=== PATIENT | male | born 1985 | race African-American/Black ===

== ENCOUNTER 2018-02-20 03:24 | Inpatient (IN) ==
--- NOTE | 2018-02-20 03:52 | ED ---
HPI General Chief complaint: Chest Pain Stated complaint: Chest pain, leg pain swelling Time Seen by Provider: 02/20/18 03:47 History of Present Illness HPI narrative: The patient is a 32 year old male who presents to the [facility] emergency department with a history of chest pain that began on Sunday. It is in the center of his chest. It is an aching sensation. It has been constant. He denies any nausea, vomiting, or diarrhea. He denies any SOB. He denies having any cough, congestion, or rhinorrhea, however his throat is reportedly dry. The patient was unaware that he had a fever until he arrived in the emergency department. The patient is being assisted with his history by his mother. The patient is somewhat of a poor historian related to his schizoaffective disorder. His mom reports that he usually gets a dry mouth when he gets his psychiatric medication injections. The patient denies having any prior history of coronary artery disease. He denies having any history of DVT or PE. He reports that he has had swelling of the right leg however that began approximately 3 weeks ago. He denies any known injury. On review of systems otherwise, the patient denies having any headache, rashes, neck pain, abdominal pain, urinary symptoms, or neurologic symptoms. Related Data Home Medications Medication Instructions Recorded Confirmed benztropine 0.5 mg PO BID 02/20/18 02/20/18 paliperidone palmitate [Invega 234 mg IM QMONTH 02/20/18 02/20/18 Sustenna] Allergies Allergy/AdvReac Type Severity Reaction Status Date / Time No Known Allergies Allergy Unverified 02/20/18 03:26 Review of Systems ROS: all other systems reviewed are negative [facility] Medical History Medical History Schizo-affective schizophrenia (Acute) Surgical History Surgical History H/O eye surgery (Acute) Social History Social History Substance History: No History of Abuse Second Hand Smoke Exposure: Yes Smoking Status: Current every day smoker Tobacco Type: Cigarettes Cigarettes Per Day: 3 How Often Do You Have a Drink Containing Alcohol: Never Recent Travel in [facility] within the Last 8 Weeks: No Recent Out of Country Travel within the Last 8 Weeks: No Immunization History Tetanus Immunization: >5 Years Hx Influenza Vaccine This Season: No Exam Const General: cooperative, no acute distress and well developed Nutritional Appearance: well nourished Orientation: alert, awake and oriented x3 HENMT Head: normocephalic and atraumatic Nose: no nasal discharge and no epistaxis Mouth: moist mucous membranes Throat: uvula midline and other (Posterior oropharynx is mildly erythematous. No tonsillar hypertrophy. No exudates or palatal petechiae.) Eyes Sclera: normal sclerae Pupils: PERRL Neck Neck: no meningeal signs, trachea midline and no JVD Resp Effort & Inspection: normal respiratory effort (The patient's O2 saturation on room air is noted to be 93) and no use of accessory muscles Auscultation: clear to auscultation bilaterally Cardio Rate: tachycardic (Sinus tachycardia in the 1 teens, no pulse deficits to the extremities on simultaneous auscultation and palpation of his radial artery) Rhythm: regular rhythm Heart Sounds: no gallops, no murmurs and no rubs GI Inspection: non-distended Palpation: soft, no hepatosplenomegaly and nontender Back/Spine/Pelvis Back: no CVA tenderness Skin General: dry skin (warm) Neuro General: alert and awake Cranial Nerves: other Speech: speech normal Motor: no movement abnormalities noted Extrem General: calf tenderness (On the right.), no clubbing, no cyanosis and edema Laterality: on the right Psych Mood: congruent mood Affect: blunted Judgment: fair Course Consultations Consultation #1: The patient's case including history, pertinent physical examination findings, and laboratory studies were discussed with Dr. Winters. It was agreed that the patient would be admitted to the hospitalist service. Initial Documented Vital Signs Temperature 101.5 F H 02/20/18 03:26 Pulse Rate 144 H 02/20/18 03:26 Respiratory Rate 16 02/20/18 03:26 Blood Pressure 131/63 02/20/18 03:26 Pulse Oximetry 94 L 02/20/18 03:26 Last Documented Vital Signs Temperature 99.2 F 02/20/18 07:15 Pulse Rate 98 H 02/20/18 07:15 Respiratory Rate 18 02/20/18 07:15 Blood Pressure 119/79 02/20/18 07:15 Pulse Oximetry 95 02/20/18 07:15 Critical Care Time Critical Care Time: Yes Total Critical Care Time: 34 Attestation: Aggregate critical care time was 34 minutes. Time to perform other separately billable procedures was not included in the critical care time. My time did not include minutes spent treating any other patients simultaneously or on activities that did not directly contribute to the patient's treatment. The services I provided to this patient were to treat and/or prevent clinically significant deterioration that could result in: Respiratory failure, versus hypoxic brain injury, versus cardiovascular collapse I provided critical care services requiring my management, as noted below: Chart data review, documentation time, medication orders and management, vital sign assessments/reviewing monitor data, ordering and reviewing lab tests, ordering and interpreting/reviewing x-rays and diagnostic studies, care of the patient and discussion of the patient with the admitting physicians. Medical Decision Making MDM Narrative Medical decision making narrative: During the course of the patient's emergency department visit, the patient's history, examination, and differential diagnosis were reviewed with the patient. The patient was placed on a desk monitor with oximetry and frequent blood pressure monitoring. The patient had IV access obtained and blood work sent for analysis. Diagnostic evaluation was started regarding the patient's chest pain and fever. Blood cultures x2 were ordered. The patient was initially provided normal saline at 500 mL bolus x1, Tylenol 650 p.o. x1 for fever. Diagnostic studies are remarkable for a white count of 8.7, hemoglobin 14.4, platelets 236, monocytes 14.7. PT PTT within normal limits, chemistries remarkable for creatinine 1.36, GFR of 73, glucose 111, calcium 8.0, AST 77, initial set of cardiac enzymes are within normal limits, BNP is 8, albumin 2.9, TSH within normal limits, lipase within normal limits. A chest x-ray revealed mild bilateral lower lung zone pulmonary opacity which may represent pulmonary edema versus atelectasis versus mild consolidation, moderate cardiac silhouette enlargement. Ultrasound of the right lower extremity revealed occlusive DVT of the right lower extremity involving the popliteal and posterior tibial veins, CTA to rule out PE revealed multiple moderate sized pulmonary emboli bilaterally , moderate severity bilateral lower lobe pulmonary consolidation, small pleural effusions. The patient was started on azithromycin 500 mg IV. The patient was started on heparin as a bolus and a drip for PE and DVT. The patient's results were discussed with the patient, including the plan of care. I explained that further testing and/ or monitoring is indicated based on the patient's history, examination, and/ or laboratory findings. Therefore, I recommended admission for additional evaluation. The patient expressed understanding and was agreeable with this plan. The patient was admitted to the hospital in guarded condition and sent to a bed under the care of the [facility] service. Medical Screen Exam Complete: Yes Emergency Medical Condition: Yes Differential Diagnosis Differential Diagnosis: Pulmonary embolism, versus pneumonia, versus acute coronary syndrome, versus congestive heart failure, versus endocarditis Medical Records Medical records reviewed: Yes I reviewed the patient's medical records. Lab Data Lab results reviewed: Yes I reviewed the patient's lab results. Result diagrams: 02/20/18 04:00 02/20/18 04:00 Lab Results 02/20/18 02/20/18 02/20/18 Range/Units 04:00 04:00 04:00 WBC 8.7 (4.0-11.0) th/mm3 RBC 4.88 (4.50-5.90) mil/mm3 Hgb 14.4 (13.0-17.0) gm/dL Hct 42.1 (39.0-51.0) % MCV 86.2 (80.0-100.0) fL MCH 29.4 (27.0-34.0) pg MCHC 34.2 (32.0-36.0) % RDW 13.1 (11.6-17.2) % Plt Count 236 (150-450) th/mm3 MPV 8.4 (7.0-11.0) fL Neut % (Auto) 66.8 (16.0-70.0) % Lymph % (Auto) 16.7 (9.0-44.0) % [place] % (Auto) 14.7 H (0.0-8.0) % Eos % (Auto) 1.5 (0.0-4.0) % Baso % (Auto) 0.3 (0.0-2.0) % Neut # (Auto) 5.8 (1.8-7.7) th/mm3 Lymph # (Auto) 1.5 (1.0-4.8) th/mm3 [place] # (Auto) 1.3 H (0.0-0.9) th/mm3 Eos # (Auto) 0.1 (0.0-0.4) th/mm3 Baso # (Auto) 0.0 (0.0-0.2) th/mm3 WBC Differential . Differential Comment Auto diff final PT 11.0 (9.8-11.6) sec INR 1.1 Ratio APTT 27.3 (24.3-30.1) sec Sodium 141 (136-145) meq/L Potassium 3.6 (3.5-5.1) meq/L Chloride 103 (98-107) meq/L Carbon Dioxide 28.2 (21.0-32.0) meq/L Anion Gap 10 (5-15) meq/L BUN 10 (7-18) mg/dL Creatinine 1.36 H (0.60-1.30) mg/dL Estimated GFR 73 L (>89) mL/min Random Glucose 111 H (74-106) mg/dL Calcium 8.0 L (8.5-10.1) mg/dL Magnesium 2.0 (1.5-2.5) mg/dL Total Bilirubin 0.8 (0.2-1.0) mg/dL AST 77 H (15-37) U/L ALT 72 (12-78) U/L Alkaline Phosphatase 81 (45-117) U/L Total Creatine Kinase 94 (39-308) U/L Troponin I Less than 0.02 L (0.02-0.05) ng/mL B-Natriuretic Peptide (0-100) pg/mL Total Protein 8.0 (6.4-8.2) g/dL Albumin 2.9 L (3.4-5.0) g/dL Lipase 131 (73-393) U/L TSH 3.610 (0.358-3.740) uIU/mL 02/20/18 02/20/18 Range/Units 04:00 06:25 WBC (4.0-11.0) th/mm3 RBC (4.50-5.90) mil/mm3 Hgb (13.0-17.0) gm/dL Hct (39.0-51.0) % MCV (80.0-100.0) fL MCH (27.0-34.0) pg MCHC (32.0-36.0) % RDW (11.6-17.2) % Plt Count (150-450) th/mm3 MPV (7.0-11.0) fL Neut % (Auto) (16.0-70.0) % Lymph % (Auto) (9.0-44.0) % [place] % (Auto) (0.0-8.0) % Eos % (Auto) (0.0-4.0) % Baso % (Auto) (0.0-2.0) % Neut # (Auto) (1.8-7.7) th/mm3 Lymph # (Auto) (1.0-4.8) th/mm3 [place] # (Auto) (0.0-0.9) th/mm3 Eos # (Auto) (0.0-0.4) th/mm3 Baso # (Auto) (0.0-0.2) th/mm3 WBC Differential Differential Comment PT 11.4 (9.8-11.6) sec INR 1.1 Ratio APTT 27.3 (24.3-30.1) sec Sodium (136-145) meq/L Potassium (3.5-5.1) meq/L Chloride (98-107) meq/L Carbon Dioxide (21.0-32.0) meq/L Anion Gap (5-15) meq/L BUN (7-18) mg/dL Creatinine (0.60-1.30) mg/dL Estimated GFR (>89) mL/min Random Glucose (74-106) mg/dL Calcium (8.5-10.1) mg/dL Magnesium (1.5-2.5) mg/dL Total Bilirubin (0.2-1.0) mg/dL AST (15-37) U/L ALT (12-78) U/L Alkaline Phosphatase (45-117) U/L Total Creatine Kinase (39-308) U/L Troponin I (0.02-0.05) ng/mL B-Natriuretic Peptide 8 (0-100) pg/mL Total Protein (6.4-8.2) g/dL Albumin (3.4-5.0) g/dL Lipase (73-393) U/L TSH (0.358-3.740) uIU/mL Imaging Data Radiologist's impression: Chest X-Ray 02/20/18 03:54 CONCLUSION: 1. Mild bilateral lower lung zone pulmonary opacity may represent mild pulmonary edema, atelectasis, or mild consolidation. 2. Moderate cardiac silhouette enlargement. Chest CTA 02/20/18 03:58 CONCLUSION: 1. Multiple moderate-sized pulmonary emboli bilaterally. 2. Moderate severity bilateral lower lobe pulmonary consolidation/atelectasis. 3. Small pleural effusions. Venous Doppler Study 02/20/18 03:58 CONCLUSION: Occlusive DVT of the right lower extremity involving the popliteal and posterior tibial veins. ECG Data Attestation: I personally reviewed and interpreted this ECG as follows: Interpretation: The patient had an EKG done on arrival that shows a sinus tachycardia with occasional ventricular premature complexes heart rate of 117, QRS duration 70 ms, QTC [address] segment elevation. T waves are inverted in lead III, V1. Discharge Plan Discharge Disposition Patient Disposition: 30 Still Patient Discharge Details Diagnosis: Bilateral pulmonary embolism, DVT (deep venous thrombosis) Physicians Team ED Provider: Pau Cobos Primary Care Provider: Primary Care Radha Rome Attending Provider: Mark Ching Discharge Interventions Interventions: Vital Signs Last Done: 02/20/18 03:31 Status ED Status: Admitted Patient
[2018-02-20] MEDS ORDERED: Acetaminophen 325 MG Tablet PO ONE (03:54)
--- NOTE | 2018-02-20 04:13 | XR ---
EXAM DATE: 02/20/2018 3:54 AM EDT AGE/SEX: 32 years / Male INDICATIONS: Chest pain. CLINICAL DATA: This is the patient's initial encounter. Patient reports that signs and symptoms have been present for 1 day and indicates a pain score of 4/10. MEDICAL/SURGICAL HISTORY: None. None. COMPARISON: . FINDINGS: Single AP view of the chest. Lung volumes are low. Patchy bilateral lower lung zone pulmonary parench ymal opacity. Moderate cardiac silhouette enlargement. No evidence of pleural effusion or pneumothora x. CONCLUSION: 1. Mild bilateral lower lung zone pulmonary opacity may represent mild pulmonary edema, atelectasis, or mild consolidation. 2. Moderate cardiac silhouette enlargement. Electronically signed by: Aubrey Meyer MD 02/20/2018 4:12 AM EDT
[2018-02-20 04:37] LABS: Activated Partial Thrombo Time 27.3 sec (24.3-30.1); Baso % (Auto) 0.3 % (0.0-2.0); Eos # (Auto) 0.1 th/mm3 (0.0-0.4); Eos % (Auto) 1.5 % (0.0-4.0); Hematocrit 42.1 % (39.0-51.0); Hemoglobin 14.4 gm/dL (13.0-17.0); INR 1.1 Ratio; Lymph # (Auto) 1.5 th/mm3 (1.0-4.8); Lymph % (Auto) 16.7 % (9.0-44.0); Mean Corpuscular HGB Conc 34.2 % (32.0-36.0); Mean Corpuscular Hemoglobin 29.4 pg (27.0-34.0); Mean Corpuscular Volume 86.2 fL (80.0-100.0); Mean Platelet Volume 8.4 fL (7.0-11.0); Mono # (Auto) 1.3 th/mm3 (0.0-0.9); Mono % (Auto) 14.7 % (0.0-8.0); Neut # (Auto) 5.8 th/mm3 (1.8-7.7); Neut % (Auto) 66.8 % (16.0-70.0); Platelet Count 236 th/mm3 (150-450); Red Blood Count 4.88 mil/mm3 (4.50-5.90); Red Cell Distribution Width 13.1 % (11.6-17.2); White Blood Count 8.7 th/mm3 (4.0-11.0)
[2018-02-20 04:42] LABS: Albumin 2.9 g/dL (3.4-5.0); Anion Gap 10 meq/L (5-15); Aspartate Aminotransferase 77 U/L (15-37); Blood Urea Nitrogen 10 mg/dL (7-18); Carbon Dioxide 28.2 meq/L (21.0-32.0); Chloride 103 meq/L (98-107); Glomerular Filtration Rate 73 mL/min (>89); Glucose,Random 111 mg/dL (74-106); Lipase 131 U/L (73-393); Potassium 3.6 meq/L (3.5-5.1); Sodium 141 meq/L (136-145)
[2018-02-20 04:53] LABS: Alanine Aminotransferase 72 U/L (12-78); Alkaline Phosphatase 81 U/L (45-117)
[2018-02-20 04:56] LABS: Creatine Kinase 94 U/L (39-308)
[2018-02-20] MEDS ORDERED: Azithromycin Inj 500 MG in Sodium Chlor 0.9% Inj 250 ML IV.SIG ONE (05:14)
[2018-02-20] MEDS ORDERED: Sodium Chlor 0.9% Inj 500 ML IV.SIG ONE (05:14)
--- NOTE | 2018-02-20 05:36 | US ---
EXAM DATE: 02/20/2018 3:58 AM EDT AGE/SEX: 32 years / Male INDICATIONS: Right leg pain and swelling. CLINICAL DATA: This is the patient's initial encounter. Patient reports that signs and symptoms have been present for 3 days and indicates a pain score of 7/10. MEDICAL/SURGICAL HISTORY: . Schizophrenia. Right leg swelling and pain. . Eye surgery. COMPARISON: No prior exams available for comparison. TECHNIQUE: Venous ultrasound of both lower extremities was performed from the inguinal ligament to t he proximal calf. Real-time, color Doppler and spectral tracing, compression and augmentation techni ques were used. FINDINGS: There is lack of compression and color Doppler flow of the right popliteal vein and proxim al posterior tibial vein. Normal compression and color Doppler flow of the common femoral vein, super ficial femoral vein, and peroneal vein. CONCLUSION: Occlusive DVT of the right lower extremity involving the popliteal and posterior tibial veins. Electronically signed by: Aubrey Meyer MD 02/20/2018 5:34 AM EDT
--- NOTE | 2018-02-20 06:08 | CT ---
EXAM DATE: 02/20/2018 4:00 AM EDT AGE/SEX: 32 years / Male INDICATIONS: Chest pain with leg swelling. CLINICAL DATA: This is the patient's initial encounter. Patient reports that signs and symptoms have been present for 1 day and indicates a pain score of 6/10. MEDICAL/SURGICAL HISTORY: None. None. RADIATION DOSE: 21.51 CTDI (mGy) COMPARISON: No prior exams available for comparison. TECHNIQUE: Volumetric scanning was performed using a multi-row detector CT scanner during bolus infu sharon of 70 ml Omnipaque 350 (iohexol) nonionic water-soluble contrast as a single exam dose. The meg a was post processed with a variety of visualization algorithms including full volume maximum intensi ty projection and sliding thin slab reformation. Using automated exposure control and adjustment of the mA and/or kV according to patient size, radiation dose was kept as low as reasonably achievable t o obtain optimal diagnostic quality images. DICOM format image data is available electronically for review and comparison. FINDINGS: Pulmonary Arteries: Multiple moderate-sized filling defects are seen in the pulmonary arteries bilat erally indicating pulmonary emboli. These involve the proximal segmental branches of the lower lobes bilaterally. Left upper lobe branches are also involved. Lung: Moderate severity atelectasis/consolidation of the lower lobes bilaterally. Effusion: Small bilateral pleural effusions. Small pericardial effusion. Mediastinum: Thoracic aorta diameter within normal limits. No enlarged lymph nodes. Other: The axilla is unremarkable. CONCLUSION: 1. Multiple moderate-sized pulmonary emboli bilaterally. 2. Moderate severity bilateral lower lobe pulmonary consolidation/atelectasis. 3. Small pleural effusions. Electronically signed by: Aubrey Meyer MD 02/20/2018 6:07 AM EDT
[2018-02-20] MEDS ORDERED: Heparin 10,000 UNITS/10 ML Vial (for IV use) IV.PUSH STA (06:10)
[2018-02-20] MEDS ORDERED: Bisacodyl 10 MG Supp RECTAL PRN (06:21)
[2018-02-20] MEDS ORDERED: Warfarin Consult Pharmacy OTHER PRN (06:22)
[2018-02-20 06:54] LABS: Activated Partial Thrombo Time 27.3 sec (24.3-30.1); INR 1.1 Ratio; Prothrombin Time 11.4 sec (9.8-11.6)
[2018-02-20] MEDS: Heparin Drip 25,000 UNIT/250 ML BAG IV.CONT PRN ×2 (06:56→21:33)
--- NOTE | 2018-02-20 10:08 | P.HP ---
History of Present Illness Primary Care Physician: No Primary Care Physician History of Present Illness: 32-year-old white male being admitted for pulmonary emboli and DVT. Patient was in his usual state of health until Sunday when he began experiencing chest pain as well as right lower extremity pain. His mother noted that his chest pain would worsen when he would lie down flat. Chest pain slightly progressed since Sunday thus they decided come to the emergency department. Mother denies taking any additional medications try to treat his chest pain. Denies any nausea vomiting fevers or chills. Denies any shortness of breath. Mother denies the patient taking any long trips recently in the last 2 weeks. Patient does endorse that he smokes. Mother says that for long parts of the day he sits around the house, is relatively sedentary. He was recently released from incarceration earlier this October, his incarceration lasted 13 years for fleeting and losing. Sees a account specialist and gets an Invega injections as well as Cogentin for schizoaffective disorder for the past few months. Mother endorses a family history of blood clots in herself and his brother. They denied being diagnosed with any blood clotting disorder. In the emergency department patient had an EKG done which upon my independent review shows no acute changes concerning for ischemia nor infarction, only sinus tachycardia. Chest x-ray is unremarkable. Patient had a CTA performed which was read as having moderate bilateral pulmonary emboli. My independent review of the CT scan does show bilateral infiltrates suggestive of pneumonia as well in the lung gonsalez. Venous Dopplers also shows an occlusive right lower extremity DVT in the posterior tibial veins. His BMP showed mild AK I. Patient was started on a heparin drip and given azithromycin and Rocephin. Inpatient Certification: I certify that the inpatient services were ordered in accordance with Medicare regulations governing the order. This includes certification that hospital inpatient services are reasonable and necessary and in the case of services not specified as inpatient-only under 42 CFR 419.22(n), that they are appropriately provided as inpatient services in accordance to with the 2-midnight benchmark under 43 CFR 412.3(e) Estimated Total Length of Stay (Days): 3 Plans for Post Hospital Care: Home Review of Systems All other systems reviewed negative except as stated in HPI [facility] - History History Provided By: Patient, Family Member - Medical History Medical History: Medical History (Last Reviewed 09/26/18 @ 10:03 by Mark Ching MD) Schizo-affective schizophrenia - Surgical History Surgical History: Surgical History (Last Reviewed 02/20/18 @ 10:03 by Mark Ching MD) H/O eye surgery - Family History Family History: Family History (Last Updated 02/20/18 @ 10:04 by Mark Ching MD) Other VTE (venous thromboembolism) - Social History I have reviewed the patient's Social History: Yes - Tobacco History Second Hand Smoke Exposure: Yes Tobacco Use In Past 30 Days: Yes Smoking Status: Current every day smoker Tobacco Type: Cigarettes Cigarettes Per Day: 3 - Alcohol History How Often Do You Have a Drink Containing Alcohol: Never - Substance Use History Substance History: No History of Abuse - Travel History Recent Travel in the [place] Within the Last 8 Weeks: No Recent Travel Out of the Country Within the Last 8 Weeks: No - Immunization History Tetanus Immunization: >5 Years Hx Influenza Vaccine This Season: No Medications and Allergies Active Medications: Active Medications Al Hydroxide/Mg Hydroxide (Milk Of Magnesia Liq) 30 ml PO Q12H PRN PRN Reason: Mild Constipation Azithromycin (Zithromax) 500 mg PO DAILY JCARLOS Bisacodyl (Dulcolax Supp) 10 mg RECTAL DAILY PRN PRN Reason: SEVERE CONSITIPATION Heparin Sodium/Dextrose (Heparin/D5w 25,000 U/250 Ml) 25,000 unit in 250 mls @ 0 mls/hr IV.CONT TITRATE PRN; Protocol PRN Reason: Per Protocol Last Admin: 02/20/18 06:56 Dose: 1,800 units/hr, 18 mls/hr Ceftriaxone Sodium 2,000 mg/ (Sodium Chloride) 100 mls @ 200 mls/hr IV.SIG Q24H JCARLOS Last Infusion: 02/20/18 07:14 Dose: Infused Lactulose (Lactulose Liq) 30 ml PO DAILY PRN PRN Reason: SEVERE CONSITIPATION Patient Medication Teaching (Coumadin Booklet) 1 each OTHER ONCE@1500 ONE Stop: 02/20/18 15:01 Pharmacy Profile Note (Coumadin Consult Pharmacy) 1 each OTHER UNSCH PRN PRN Reason: PHARMACY DOCUMENTATION Sennosides (Senokot) 17.2 mg PO Q12H PRN PRN Reason: Moderate Constipation Sodium Chloride (Ns Flush) 2 ml IV.FLUSH UNSCH PRN PRN Reason: FLUSH AFTER USING IV ACCESS Warfarin Sodium (Coumadin) 6 mg PO DAILY@1600 [facility] Allergies Allergy/AdvReac Type Severity Reaction Status Date / Time No Known Allergies Allergy Unverified 02/20/18 03:26 Home Medications Medication Instructions Recorded Confirmed Type benztropine 0.5 mg PO BID 02/20/18 02/20/18 History paliperidone palmitate [Invega 234 mg IM QMONTH 02/20/18 02/20/18 History Sustenna] Exam Vital signs: Vital Signs 02/20/18 03:26 02/20/18 03:31 02/20/18 05:23 Temperature 101.5 F H 101.5 F H 99.1 F Pulse Rate 144 H 115 H Respiratory Rate 16 20 Blood Pressure 131/63 128/69 Pulse Oximetry 94 L 93 L 02/20/18 05:45 02/20/18 07:15 02/20/18 09:21 Temperature 99.2 F Pulse Rate 98 H 108 H Respiratory Rate 18 16 Blood Pressure 119/79 158/82 H Pulse Oximetry 98 95 95 Intake & Output 02/19/18 02/20/18 02/20/18 18:59 06:59 18:59 Intake Total 750 / 750 100 / 100 Balance 750 / 750 100 / 100 Weight 220 kg Intake: IV 750 / 750 100 / 100 Azithromycin Inj 500 MG In NS 250 / 250 Inj 250 ML @ 250 mls/hr IV.SIG ONCE ONE Rx#:[id number] NS Inj 500 ML @ Wide Open IV. 500 / 500 SIG BOLUS ONE Rx#:[id number] Rocephin Inj 2,000 MG In NS Inj 100 / 100 100 ML @ 200 mls/hr IV.SIG Q24H [facility] Rx#:[id number] Narrative: VS: afebrile GENERAL: Lying in bed, no acute distress SKIN: Warm and dry. EYES: Pupils equal and round. No scleral icterus. No injection or drainage. ENT: No nasal bleeding or discharge. Gold teeth CARDIOVASCULAR: Regular rate and rhythm. no murmurs RESPIRATORY: No accessory muscle use. Clear to auscultation. Breath sounds equal bilaterally. GASTROINTESTINAL: Abdomen soft, non-tender, nondistended. Extremities: No clubbing, cyanosis. Very trace right lower extremity edema that is nonpitting. MUSCULOSKELETAL: adequate muscle bulk and tone for age and habitus NEUROLOGICAL: Awake and alert. No obvious cranial nerve deficits. No facial droop nor slurred speech noted. PSYCHIATRIC: Appropriate mood, slightly flat affect; insight and judgment normal. Results - Labs CBC & Chem 7: 02/21/18 05:13 02/21/18 05:13 Labs: Laboratory Results - last 24 hr 02/20/18 02/20/18 02/20/18 04:00 04:00 04:00 WBC 8.7 RBC 4.88 Hgb 14.4 Hct 42.1 MCV 86.2 MCH 29.4 MCHC 34.2 RDW 13.1 Plt Count 236 MPV 8.4 Neut % (Auto) 66.8 Lymph % (Auto) 16.7 [place]annin % (Auto) 14.7 H Eos % (Auto) 1.5 Baso % (Auto) 0.3 Neut # (Auto) 5.8 Lymph # (Auto) 1.5 [place] # (Auto) 1.3 H Eos # (Auto) 0.1 Baso # (Auto) 0.0 WBC Differential . Differential Comment Auto diff final PT 11.0 INR 1.1 APTT 27.3 Sodium 141 Potassium 3.6 Chloride 103 Carbon Dioxide 28.2 Anion Gap 10 BUN 10 Creatinine 1.36 H Estimated GFR 73 L Random Glucose 111 H Calcium 8.0 L Magnesium 2.0 Total Bilirubin 0.8 AST 77 H ALT 72 Alkaline Phosphatase 81 Total Creatine Kinase 94 Troponin I Less than 0.02 L B-Natriuretic Peptide Total Protein 8.0 Albumin 2.9 L Lipase 131 TSH 3.610 02/20/18 02/20/18 04:00 06:25 WBC RBC Hgb Hct MCV MCH MCHC RDW Plt Count MPV Neut % (Auto) Lymph % (Auto) [place]ann[place] % (Auto) Eos % (Auto) Baso % (Auto) Neut # (Auto) Lymph # (Auto) [place]annin # (Auto) Eos # (Auto) Baso # (Auto) WBC Differential Differential Comment PT 11.4 INR 1.1 APTT 27.3 Sodium Potassium Chloride Carbon Dioxide Anion Gap BUN Creatinine Estimated GFR Random Glucose Calcium Magnesium Total Bilirubin AST ALT Alkaline Phosphatase Total Creatine Kinase Troponin I B-Natriuretic Peptide 8 Total Protein Albumin Lipase TSH - Imaging Impressions Chest X-Ray 02/20/18 03:54 CONCLUSION: 1. Mild bilateral lower lung zone pulmonary opacity may represent mild pulmonary edema, atelectasis, or mild consolidation. 2. Moderate cardiac silhouette enlargement. Chest CTA 02/20/18 03:58 CONCLUSION: 1. Multiple moderate-sized pulmonary emboli bilaterally. 2. Moderate severity bilateral lower lobe pulmonary consolidation/atelectasis. 3. Small pleural effusions. Venous Doppler Study 02/20/18 03:58 CONCLUSION: Occlusive DVT of the right lower extremity involving the popliteal and posterior tibial veins. Caprini VTE Risk Assessment Caprini VTE Risk Assessment: Moderate/High Risk (score >= 2) Caprini Risk Assessment Model: Point Value = 1 Point Value = 2 Point Value = 3 Point Value = 5 Age 41-60 Minor surgery BMI > 25 kg/m2 Swollen legs Varicose veins or History of unexplained or recurrent spontaneous Oral contraceptives or hormone replacement Sepsis (< 1 month) Serious lung disease, including pneumonia (< 1 month) Abnormal pulmonary function Acute myocardial infarction Congestive heart failure (< 1 month) History of inflammatory bowel disease Medical patient at bed rest Age 61-74 Arthroscopic surgery Major open surgery (> 45 min) Laparoscopic surgery (> 45 min) Malignancy Confined to bed (> 72 hours) Immobilizing plaster cast Central venous access Age >= 75 History of VTE Family history of VTE Factor V Leiden Prothrombin [id number] Lupus anticoagulant Anticardiolipin antibodies Elevated serum homocysteine Heparin-induced thrombocytopenia Other congenital or acquired thrombophilia Stroke (< 1 month) Elective arthroplasty Hip, pelvis, or leg fracture Acute spinal cord injury (< 1 month) Prophylaxis Regimen: Total Risk Factor Score Risk Level Prophylaxis Regimen 0-1 Low Early ambulation 2 Moderate Order ONE of the following: *Sequential Compression Device (SCD) *Heparin 5000 units SQ BID 3-4 Higher Order ONE of the following medications: *Heparin 5000 units SQ TID *Enoxaparin/Lovenox 40 mg SQ daily (WT < 150 kg, CrCl > 30 mL/min) *Enoxaparin/Lovenox 30 mg SQ daily (WT < 150 kg, CrCl > 10-29 mL/min) *Enoxaparin/Lovenox 30 mg SQ BID (WT < 150 kg, CrCl > 30 mL/min) AND/OR *Sequential Compression Device (SCD) 5 or more Highest Order ONE of the following medications: *Heparin 5000 units SQ TID (Preferred with Epidurals) *Enoxaparin/Lovenox 40 mg SQ daily (WT < 150 kg, CrCl > 30 mL/min) *Enoxaparin/Lovenox 30 mg SQ daily (WT < 150 kg, CrCl > 10-29 mL/min) *Enoxaparin/Lovenox 30 mg SQ BID (WT < 150 kg, CrCl > 30 mL/min) AND *Sequential Compression Device (SCD) Assessment and Plan - Plan 32-year-old white male being admitted for bilateral pulmonary emboli, right lower extremity DVT, and pneumonia. VTEs -Possibly unprovoked except for the risk factor of him smoking. Given his young age and his strong family history of VTEs, I will consult hematology to establish contact with him as well as give a recommendation for anticoagulation since he is a self-pay and may not have easy access to the novel oral anticoagulants for the future. My general medical standpoint he can likely be discharged this evening nonetheless. -Heparin drip Pneumonia -Bilateral infiltrates noted, continue antibiotics, given bilateral picture will consider putting the patient on Levaquin upon discharge RADHA -IVFs Schizoaffective disorder Continue home medications Discharge Planning: Anticipate DC today after hematology sees patient
[2018-02-20] MEDS ORDERED: Sod Chloride 0.9% Inj 1,000 ML IV.SIG SCH (10:15)
--- NOTE | 2018-02-20 20:58 | ECG ---
Date Performed: 02/20/2018 Time Performed: 03:38:37 PTAGE: 32 years EKG: SINUS TACHYCARDIA WITH OCCASIONAL VENTRICULAR PREMATURE COMPLEXES ABNORMAL RHYTHM ECG NO PREVIOUS TRACING DOCTOR: Faustino Crook Interpretating Date/Time 02/20/2018 20:57:18
[2018-02-20] MEDS: Acetaminophen 325 MG Tablet PO PRN (22:13)
[2018-02-21] MEDS: Acetaminophen 325 MG Tablet PO PRN ×2 (05:07→18:38)
[2018-02-21 05:49] LABS: Baso % (Auto) 0.5 % (0.0-2.0); Eos # (Auto) 0.2 th/mm3 (0.0-0.4); Eos % (Auto) 2.2 % (0.0-4.0); Hematocrit 38.6 % (39.0-51.0); Hemoglobin 13.2 gm/dL (13.0-17.0); Lymph # (Auto) 1.1 th/mm3 (1.0-4.8); Lymph % (Auto) 13.8 % (9.0-44.0); Mean Corpuscular HGB Conc 34.1 % (32.0-36.0); Mean Corpuscular Hemoglobin 29.3 pg (27.0-34.0); Mean Corpuscular Volume 85.9 fL (80.0-100.0); Mean Platelet Volume 7.9 fL (7.0-11.0); Mono # (Auto) 1.1 th/mm3 (0.0-0.9); Mono % (Auto) 14.3 % (0.0-8.0); Neut # (Auto) 5.4 th/mm3 (1.8-7.7); Neut % (Auto) 69.2 % (16.0-70.0); Platelet Count 235 th/mm3 (150-450); Red Blood Count 4.49 mil/mm3 (4.50-5.90); Red Cell Distribution Width 12.9 % (11.6-17.2); White Blood Count 7.8 th/mm3 (4.0-11.0)
[2018-02-21 05:55] LABS: Activated Partial Thrombo Time 35.4 sec (24.3-30.1); INR 1.2 Ratio; Prothrombin Time 11.8 sec (9.8-11.6)
[2018-02-21 06:09] LABS: Alanine Aminotransferase 84 U/L (12-78); Albumin 2.6 g/dL (3.4-5.0); Anion Gap 7 meq/L (5-15); Aspartate Aminotransferase 64 U/L (15-37); Blood Urea Nitrogen 10 mg/dL (7-18); Calcium 8.2 mg/dL (8.5-10.1); Carbon Dioxide 26.7 meq/L (21.0-32.0); Chloride 106 meq/L (98-107); Glomerular Filtration Rate Greater Than 89 mL/min (>89); Glucose,Random 103 mg/dL (74-106); Potassium 3.9 meq/L (3.5-5.1); Sodium 140 meq/L (136-145)
[2018-02-21 06:12] LABS: Alkaline Phosphatase 80 U/L (45-117); Total Protein 7.2 g/dL (6.4-8.2)
[2018-02-21] MEDS ORDERED: Azithromycin 250 MG Tablet PO SCH (09:00)
[2018-02-21] MEDS ORDERED: Vancomycin Consult Pharmacy OTHER PRN (09:09)
--- NOTE | 2018-02-21 10:03 | MB ---
cc: Rupali Deshpande MD,Mark Kyle MD DATE: 02/21/2018 ONCOLOGY NEW PATIENT CONSULTATION REFERRING PHYSICIAN: Dr. Mark Ching. CHIEF COMPLAINT: Dr. Ching requests a consultation for Mr. Blackwood with unprovoked pulmonary embolism and deep vein thromboses. HISTORY OF PRESENT ILLNESS: Mr. Blackwood is a 62-year-old man with a history of schizophrenia, suffering from delusions, paranoia and auditory hallucinations. He was recently incarcerated and discharged home. Apparently, he was quite sedentary at home. No reliable history could be obtained from the patient. His mother was not at bedside to confirm. His history of present illness and past medical history was reviewed from his electronic medical records. He apparently was incarcerated recently and discharged home. He has been quite sedentary. He reports that he had the flu. He denies any specific symptoms. No chest pain or shortness of breath at present. A CT angiogram was performed that shows moderate sized pulmonary emboli bilaterally. There is moderate severity of consolidation and atelectasis of bilateral lower lobes. There is a small pleural effusion. Additional imaging including Doppler ultrasound of the right lower extremity showed occlusive DVT of the right lower extremity involving the popliteal area and posterior tibial veins. He was promptly started on unfractionated heparin. There is a questionable infiltrate. He had some low-grade temperature. He was febrile on presentation and therefore was started on antibiotic therapy. He continues to be febrile in the last 24 hours. Blood cultures have been obtained and are still pending. His influenza could not be ruled out. He appears to be tolerating his treatment for his deep vein thromboses and pulmonary embolism. He denies any bleeding. He offers no acute complaints this morning. Hematology/Oncology is consulted for the unprovoked right lower extremity deep vein thromboses associated with bilateral pulmonary emboli. PAST MEDICAL HISTORY: 1. Schizoaffective disorder with hallucinations. 2. Right lower extremity deep vein thrombosis. 3. Bilateral pulmonary emboli. 4. Liver function elevation. PAST SURGICAL HISTORY: None. SOCIAL HISTORY: He is living with his mother. He has used marijuana in the past. He is an everyday smoker. He drinks alcohol 2-4 times a month. FAMILY HISTORY: No family history of thromboses described by the patient. Mother reports a family history of venous thromboembolic events. ALLERGIES: NO KNOWN DRUG ALLERGIES. MEDICATIONS: Currently include: 1. Tylenol. 2. Milk of Magnesia. 3. Azithromycin. 4. Cogentin 5. Dulcolax. 6. Ceftriaxone. 7. Unfractionated Heparin. 8. Lactulose. 9. Warfarin. PHYSICAL EXAMINATION: VITAL SIGNS: T-max 102.5, current temperature 99.7, heart rate 93, respiratory rate 16, blood pressure 151/86, saturation 95%. GENERAL: Mr. Blackwood is a well-developed, well-nourished man. He appears to be in no acute distress. He smiles with full set of gold teeth. HEENT: Pupils are round, reactive to light and accommodation. Oropharynx is clear. NECK: Supple, no adenopathy. LUNGS: Clear. CARDIOVASCULAR: Reveals mild tachycardia. ABDOMEN: Benign. EXTREMITIES: Lower extremity with mild asymmetry. Right leg calf more prominent than the left. Good pulses. NEUROLOGIC: Nonfocal. LABORATORY DATA: Comprehensive metabolic panel significant for AST of 64, ALT of 84, alkaline phosphatase is normal. PTT shows prolongation at 35 seconds. ASSESSMENT AND PLAN: Mr. Blackwood is a 32-year-old man with a history of schizophrenia and schizoaffective disorder. He presents with flu-like symptoms. He was febrile. He was found to have unprovoked right lower extremity deep vein thromboses associated with bilateral pulmonary emboli. A lengthy discussion with Mr. Blackwood about his activities prior to coming into the hospital. I do not have the mother to substantiate his history. He does not offer a lot by way of his history, but he was reportedly quite sedentary prior to his presentation. We had a lengthy discussion about the importance of continuing his anticoagulant therapy. I will stop the unfractionated heparin and switch him to low molecular weight heparin. We should be able to obtain 3-months of a new oral anticoagulant, which would be appropriate. He is young. He has no bleeding history and his renal function is normal. He will need followup in Hematology Clinic within a month or switch him over to Coumadin. We will coordinate this with his mother. His questions were answered to his satisfaction. MD MARINA Kingston/leyda , 09:09 AM , 09:20 AM
--- NOTE | 2018-02-21 10:23 | P.PN ---
Subjective Interval history: Nursing denies any deterioration since last night except for the patient's fevers which did spike up to 102.5. Patient himself reports feeling those fevers. Denies any other symptoms. Denies any shortness of breath or chest pain or dysuria. Physical Exam Vital signs: Vital Signs 02/20/18 11:00 02/20/18 11:19 02/20/18 12:00 Temperature 99.3 F Pulse Rate 90 91 H 90 Respiratory Rate 18 Blood Pressure 145/86 H Pulse Oximetry 94 L 02/20/18 13:00 02/20/18 14:00 02/20/18 15:00 Temperature Pulse Rate 96 H 100 H 98 H Respiratory Rate Blood Pressure Pulse Oximetry 02/20/18 15:44 02/20/18 16:00 02/20/18 17:00 Temperature 99.0 F Pulse Rate 100 H 100 H 94 H Respiratory Rate 20 Blood Pressure 147/78 H Pulse Oximetry 95 02/20/18 18:00 02/20/18 19:52 02/20/18 20:00 Temperature 102.5 F H Pulse Rate 92 H 103 H Respiratory Rate 18 Blood Pressure 147/81 H Pulse Oximetry 95 94 L 02/21/18 00:00 02/21/18 04:00 02/21/18 07:30 Temperature 100.4 F H 100.4 F H 99.7 F H Pulse Rate 98 H 105 H 93 H Respiratory Rate 18 18 16 Blood Pressure 139/80 105/87 151/86 H Pulse Oximetry 93 L 91 L 95 Intake & Output 02/20/18 02/21/18 02/21/18 18:59 06:59 18:59 Intake Total 1100 / 1100 1970 / 1970 100 / 100 Output Total 1270 / 1270 Balance 1100 / 1100 700 / 700 100 / 100 Intake: IV 1100 / 1100 250 / 250 100 / 100 Heparin/D5W 25,000 U/250 mL 25, 250 / 250 000 unit In 250 ml @ Per Protocol IV.CONT TITRATE PRN Rx #:[id number] NS Inj 1,000 ML @ Wide Open IV. 1000 / 1000 SIG BOLUS JCARLOS Rx#:[id number] Rocephin Inj 2,000 MG In NS Inj 100 / 100 100 / 100 100 ML @ 200 mls/hr IV.SIG Q24H JCARLOS Rx#:[id number] Oral 1720 / 1720 Output: Urine 1270 / 1270 Other: Date of Last Bowel Movement 02/20/18 02/20/18 02/21/18 Narrative: Lungs are actually clear anteriorly bilaterally Unlabored breathing Heart sounds regular rate and rhythm, no murmurs Resting in bed, awake, very comfortable appearing Results - Labs CBC & Chem 7: 02/22/18 04:50 02/21/18 05:13 Laboratory Results - last 24 hr 02/20/18 02/20/18 02/21/18 14:39 20:41 05:13 WBC 7.8 RBC 4.49 L Hgb 13.2 Hct 38.6 L MCV 85.9 MCH 29.3 MCHC 34.1 RDW 12.9 Plt Count 235 MPV 7.9 Neut % (Auto) 69.2 Lymph % (Auto) 13.8 [place] % (Auto) 14.3 H Eos % (Auto) 2.2 Baso % (Auto) 0.5 Neut # (Auto) 5.4 Lymph # (Auto) 1.1 [place] # (Auto) 1.1 H Eos # (Auto) 0.2 Baso # (Auto) 0.0 WBC Differential . Differential Comment Auto diff final PT INR APTT 42.5 H D 41.5 H Sodium Potassium Chloride Carbon Dioxide Anion Gap BUN Creatinine Estimated GFR Random Glucose Calcium Total Bilirubin AST ALT Alkaline Phosphatase Total Protein Albumin 02/21/18 02/21/18 05:13 05:13 WBC RBC Hgb Hct MCV MCH MCHC RDW Plt Count MPV Neut % (Auto) Lymph % (Auto) [place] % (Auto) Eos % (Auto) Baso % (Auto) Neut # (Auto) Lymph # (Auto) [place] # (Auto) Eos # (Auto) Baso # (Auto) WBC Differential Differential Comment PT 11.8 H INR 1.2 APTT 35.4 H Sodium 140 Potassium 3.9 Chloride 106 Carbon Dioxide 26.7 Anion Gap 7 BUN 10 Creatinine 1.07 Estimated GFR Greater than 89 Random Glucose 103 Calcium 8.2 L Total Bilirubin 0.8 AST 64 H ALT 84 H Alkaline Phosphatase 80 Total Protein 7.2 D Albumin 2.6 L Assessment and Plan - Plan 32-year-old white male being admitted for bilateral pulmonary emboli, right lower extremity DVT, and pneumonia. VTEs -Possibly unprovoked except for the risk factor of him smoking. Given his young age and his strong family history of VTEs, I have consulted hematology hematology to establish contact with him as well as give a recommendation for anticoagulation since he is a self-pay and may not have easy access to the novel oral anticoagulants for the future. -Heparin drip Fevers overnight -Possibly secondary to pneumonia, will switch antibiotics from azithromycin and Rocephin to Levaquin and vancomycin, blood cultures pending RADHA -Resolved Schizoaffective disorder Continue home medications
[2018-02-21] MEDS ORDERED: Vancomycin Inj 2,000 MG in Sodium Chlor 0.9% Inj 500 ML IV.SIG ONE (11:00)
[2018-02-21] MEDS ORDERED: Enoxaparin Inj 80 MG/0.8 ML Syringe SQ SCH (16:00)
[2018-02-21] MEDS ORDERED: Sodium Chloride 0.9% 2 ML Flush PRN IV.FLUSH (18:19)
[2018-02-21] MEDS: Sodium Chloride 0.9% 2 ML Flush BID IV.FLUSH SCH (20:07)
[2018-02-22] MEDS: Vancomycin Inj 1,500 MG in Sodium Chlor 0.9% Inj 500 ML IV.SIG SCH ×3 (00:12→23:13)
[2018-02-22] MEDS ORDERED: Enoxaparin Inj 120 MG/0.8 ML Syringe SQ SCH (06:00)
[2018-02-22 07:05] LABS: Hematocrit 37.6 % (39.0-51.0); Hemoglobin 12.8 gm/dL (13.0-17.0); INR 1.1 Ratio; Mean Corpuscular HGB Conc 34.2 % (32.0-36.0); Mean Corpuscular Hemoglobin 29.2 pg (27.0-34.0); Mean Corpuscular Volume 85.3 fL (80.0-100.0); Mean Platelet Volume 8.1 fL (7.0-11.0); Platelet Count 264 th/mm3 (150-450); Prothrombin Time 11.5 sec (9.8-11.6); Red Cell Distribution Width 13.1 % (11.6-17.2); White Blood Count 8.2 th/mm3 (4.0-11.0)
[2018-02-22] MEDS: Sodium Chloride 0.9% 2 ML Flush BID IV.FLUSH SCH ×2 (08:25→21:19)
--- NOTE | 2018-02-22 10:23 | P.PN ---
Subjective Interval history: Nursing patient having a another fever of 102.5 which recurred to 100.5 in the last 12 hours. Patient looking forward to leaving. Says he feels better today than yesterday. Physical Exam Vital signs: Vital Signs 02/21/18 11:00 02/21/18 12:00 02/21/18 13:00 Temperature 99.1 F Pulse Rate 98 H 103 H 92 H Respiratory Rate 16 Blood Pressure 160/85 H Pulse Oximetry 95 02/21/18 14:00 02/21/18 15:00 02/21/18 16:00 Temperature Pulse Rate 102 H 105 H 94 H Respiratory Rate Blood Pressure Pulse Oximetry 02/21/18 17:00 02/21/18 18:00 02/21/18 18:30 Temperature 102.1 F H Pulse Rate 112 H 116 H 122 H Respiratory Rate 18 Blood Pressure 161/71 H Pulse Oximetry 95 02/21/18 19:00 02/21/18 20:00 02/21/18 20:21 Temperature 100.5 F H Pulse Rate 120 H 130 H 110 H Respiratory Rate 18 Blood Pressure 155/80 H Pulse Oximetry 94 L 02/21/18 21:00 02/21/18 22:00 02/21/18 23:00 Temperature Pulse Rate 106 H 122 H 112 H Respiratory Rate Blood Pressure Pulse Oximetry 02/22/18 00:00 02/22/18 01:00 02/22/18 02:00 Temperature 100.0 F H Pulse Rate 112 H 96 H 102 H Respiratory Rate 18 Blood Pressure 144/80 H Pulse Oximetry 95 02/22/18 03:00 02/22/18 04:00 02/22/18 05:00 Temperature 99.8 F H Pulse Rate 94 H 108 H 92 H Respiratory Rate 18 Blood Pressure 143/80 H Pulse Oximetry 94 L 02/22/18 06:00 02/22/18 07:00 02/22/18 08:00 Temperature 97.8 F Pulse Rate 102 H 90 74 Respiratory Rate 16 Blood Pressure 142/90 H Pulse Oximetry 96 02/22/18 08:58 02/22/18 09:35 Temperature Pulse Rate 102 H 98 H Respiratory Rate Blood Pressure Pulse Oximetry Intake & Output 02/21/18 02/22/18 02/22/18 18:59 06:59 18:59 Intake Total 2315 / 2315 755 / 755 150 / 150 Output Total 1080 / 1080 350 / 350 Balance 1235 / 1235 405 / 405 150 / 150 Weight 104.7 kg 104.5 kg Intake: IV 895 / 895 515 / 515 150 / 150 Heparin/D5W 25,000 U/250 mL 25, 125 / 125 000 unit In 250 ml @ Per Protocol IV.CONT TITRATE PRN Rx #:[id number] Levaquin 750 mg Premix Inj 150 150 / 150 150 / 150 ML @ 100 mls/hr IV.SIG Q24H [facility] Rx#:[id number] Vancomycin Inj 1,500 MG In NS 520 / 520 515 / 515 Inj 500 ML @ 250 mls/hr IV.SIG Q12H [facility] Rx#:[id number] Rocephin Inj 2,000 MG In NS Inj 100 / 100 100 ML @ 200 mls/hr IV.SIG Q24H [facility] Rx#:[id number] Oral 1420 / 1420 240 / 240 Output: Urine 1080 / 1080 350 / 350 Other: Date of Last Bowel Movement 02/21/18 02/21/18 02/21/18 # Bowel Movements 2 Narrative: clear lungs heard anteriorly, unlabored Heart sounds regular rate rhythm, no murmurs Results - Labs CBC & Chem 7: 02/22/18 04:50 02/21/18 05:13 Laboratory Results - last 24 hr 02/21/18 02/22/18 02/22/18 12:09 04:50 04:50 WBC 8.2 RBC 4.40 L Hgb 12.8 L Hct 37.6 L MCV 85.3 MCH 29.2 MCHC 34.2 RDW 13.1 Plt Count 264 MPV 8.1 PT 11.5 INR 1.1 APTT 51.3 H D Microbiology 02/21/18 15:18 Stool Stool Occult Blood ([facility]) - Final Hemoccult negative 02/20/18 04:05 Throat Group A Streptococcus Screen/Cult - Preliminary No Beta Streptococci isolated at 24 hours 02/20/18 05:20 Blood - Peripheral Aerobic Blood Culture - Preliminary No growth in 1 day 02/20/18 05:20 Blood - Peripheral Anaerobic Blood Culture - Preliminary No growth in 1 day 02/20/18 05:15 Blood - Peripheral Aerobic Blood Culture - Preliminary No growth in 1 day 02/20/18 05:15 Blood - Peripheral Anaerobic Blood Culture - Preliminary No growth in 1 day Assessment and Plan - Plan 32-year-old white male being admitted for bilateral pulmonary emboli, right lower extremity DVT, and pneumonia. VTEs -Hematology suspecting unprovoked VT E. Patient counseled on tobacco cessation. Lovenox at this time. We will proceed with direct oral anticoagulant upon discharge. Fevers -improving, continue Levaquin and vancomycin, blood cultures pending. Schizoaffective disorder Continue home medications Discharge Planning: Possible discharge tomorrow if afebrile. Mother wants patient to be on direct novel oral anticoagulant over Coumadin. Will need case management assistance in obtaining coupon for drug.
--- NOTE | 2018-02-22 18:03 | P.PNONC ---
Subjective Interval history: Mother at bedside. Patient denies any problem related to the Lovenox injection. He denies any bleeding. He likes the Lovenox because it is good for him. He denies any burning with injection. He feels that the fever broke this evening. His last temperature was 98. He denies any chest pain or shortness of breath at present. Objective Vital Signs/Intake & Output: Vital Signs 02/21/18 18:00 02/21/18 18:30 02/21/18 19:00 Temperature 102.1 F H Pulse Rate 116 H 122 H 120 H Respiratory Rate 18 Blood Pressure 161/71 H Pulse Oximetry 95 02/21/18 20:00 02/21/18 20:21 02/21/18 21:00 Temperature 100.5 F H Pulse Rate 130 H 110 H 106 H Respiratory Rate 18 Blood Pressure 155/80 H Pulse Oximetry 94 L 02/21/18 22:00 02/21/18 23:00 02/22/18 00:00 Temperature 100.0 F H Pulse Rate 122 H 112 H 112 H Respiratory Rate 18 Blood Pressure 144/80 H Pulse Oximetry 95 02/22/18 01:00 02/22/18 02:00 02/22/18 03:00 Temperature Pulse Rate 96 H 102 H 94 H Respiratory Rate Blood Pressure Pulse Oximetry 02/22/18 04:00 02/22/18 05:00 02/22/18 06:00 Temperature 99.8 F H Pulse Rate 108 H 92 H 102 H Respiratory Rate 18 Blood Pressure 143/80 H Pulse Oximetry 94 L 02/22/18 07:00 02/22/18 08:00 02/22/18 08:58 Temperature 97.8 F Pulse Rate 90 74 102 H Respiratory Rate 16 Blood Pressure 142/90 H Pulse Oximetry 96 02/22/18 09:35 02/22/18 11:00 02/22/18 12:00 Temperature 99.1 F Pulse Rate 98 H 101 H 101 H Respiratory Rate 19 Blood Pressure 148/80 H Pulse Oximetry 95 02/22/18 13:00 02/22/18 14:00 02/22/18 14:33 Temperature Pulse Rate 94 H 92 H 96 H Respiratory Rate Blood Pressure Pulse Oximetry 02/22/18 16:00 02/22/18 16:54 02/22/18 17:05 Temperature 101.1 F H Pulse Rate 93 H 78 82 Respiratory Rate 18 Blood Pressure 159/89 H Pulse Oximetry 96 02/22/18 17:35 02/22/18 17:41 Temperature 98.0 F Pulse Rate Respiratory Rate Blood Pressure Pulse Oximetry 96 Intake & Output 02/21/18 02/22/18 02/22/18 18:59 06:59 18:59 Intake Total 2315 / 2315 755 / 755 1885 / 1885 Output Total 1080 / 1080 350 / 350 1200 / 1200 Balance 1235 / 1235 405 / 405 685 / 685 Weight 104.7 kg 104.5 kg Intake: IV 895 / 895 515 / 515 665 / 665 Heparin/D5W 25,000 U/250 mL 25, 125 / 125 000 unit In 250 ml @ Per Protocol IV.CONT TITRATE PRN Rx #:[id number] Levaquin 750 mg Premix Inj 150 150 / 150 150 / 150 ML @ 100 mls/hr IV.SIG Q24H [facility] Rx#:[id number] Vancomycin Inj 1,500 MG In NS 520 / 520 515 / 515 515 / 515 Inj 500 ML @ 250 mls/hr IV.SIG Q12H [facility] Rx#:[id number] Rocephin Inj 2,000 MG In NS Inj 100 / 100 100 ML @ 200 mls/hr IV.SIG Q24H [facility] Rx#:[id number] Oral 1420 / 1420 240 / 240 1220 / 1220 Output: Urine 1080 / 1080 350 / 350 1200 / 1200 Other: Date of Last Bowel Movement 02/21/18 02/21/18 02/21/18 # Bowel Movements 2 Result Diagrams: 02/22/18 04:50 02/21/18 05:13 Laboratory Results: Laboratory Results - last 24 hr 02/22/18 02/22/18 04:50 04:50 WBC 8.2 RBC 4.40 L Hgb 12.8 L Hct 37.6 L MCV 85.3 MCH 29.2 MCHC 34.2 RDW 13.1 Plt Count 264 MPV 8.1 PT 11.5 INR 1.1 Culture Results: Microbiology 02/20/18 04:05 Group A Streptococcus Screen/Cult - Final Throat No Beta Streptococci isolated. 02/20/18 05:20 Aerobic Blood Culture - Preliminary Blood - Peripheral No growth in 2 days Anaerobic Blood Culture - Preliminary No growth in 2 days 02/20/18 05:15 Aerobic Blood Culture - Preliminary Blood - Peripheral No growth in 2 days Anaerobic Blood Culture - Preliminary No growth in 2 days 02/21/18 15:18 Stool Occult Blood ([facility]) - Final Stool Hemoccult negative 02/20/18 04:05 Group A Streptococcus Screen ([facility]) - Final Throat 02/20/18 04:10 Influenza Types A,B Antigen - Final Nasal Wash Negative for FLU A and B antigen Infection due to influenza A or B cannot be ruled out since the antigen present in the sample may be below the detection limit of the test. Medications: Active Medications Generic Name Dose Route Start Last Admin Trade Name Freq PRN Reason Stop Dose Admin Acetaminophen 650 mg 02/20/18 21:58 02/21/18 18:38 Tylenol PO 650 mg Q4H PRN Administration FEVER Benztropine Mesylate 0.5 mg 02/20/18 10:45 02/22/18 08:25 Cogentin PO 0.5 mg BID JCAR[facility]OS Administration Levofloxacin/Dextrose 150 mls @ 100 mls/hr 02/21/18 10:00 02/22/18 10:02 Levaquin 750 Mg Premix Inj IV.SIG Infused Q24H [facility] Infusion Vancomycin HCl 1,500 mg/ 515 mls @ 250 mls/hr 02/21/18 23:00 02/22/18 12:14 Sodium Chloride IV.SIG Infused Q12H [facility] Infusion Sodium Chloride 2 ml 02/21/18 21:00 02/22/18 08:25 Ns Flush IV.FLUSH 2 ml BID [facility] Administration Objective Remarks: GENERAL: Well-nourished, well-developed patient. SKIN: Warm and dry. HEAD: Normocephalic. Mouth full of teeth with gold caps. EYES: No scleral icterus. No injection or drainage. NECK: Supple, trachea midline. No JVD or lymphadenopathy. LYMPHATIC: No adenopathy. CARDIOVASCULAR: Regular rate and rhythm without murmurs. RESPIRATORY: Breath sounds equal bilaterally. No accessory muscle use. GASTROINTESTINAL: Abdomen soft, non-tender, nondistended. EXTREMITIES: No cyanosis, or edema. MUSCULOSKELETAL: Adequate muscle tone. NEUROLOGICAL: No obvious focal deficit. Awake, alert, and oriented x3. Assessment/Plan (1) Bilateral pulmonary embolism Code(s): I26.99 - Other pulmonary embolism without acute cor pulmonale Status : Acute (2) DVT (deep venous thrombosis) Code(s): I82.409 - Acute embolism and thrombosis of unspecified deep veins of unspecified lower extremity Status: Acute - Plan 32-year-old man with psychiatric history recently incarcerated and relatively sedentary at home. He lives with his mother and does not work. He presents with fever and shortness of breath. He was found to have a deep vein thromboses associated with bilateral pulmonary embolism. #1. Continue Lovenox 100 mg subcutaneously every 12 hours. Clinically he is improving from his pulmonary embolism. He denies any shortness of breath. He has no bleeding complications related to the low molecular weight heparin. We will continue to monitor his response to anticoagulant therapy. #2. Fevers. Cultures are still pending. No localizing symptoms. There is questionable infiltrate and pulmonary source for the fevers. Antibiotic therapy have been continued. Clinically he is improved. #3. Advised to follow-up on an outpatient basis. Information on regional oncology clinic and a new patient referral was given to patient's mother at bedside. #4. Case management was consulted for the Eliquis starter pack coupon. Anticipate switching patient to Eliquis 5 mg every 12 hours upon discharge. Anticipate following up in clinic before the 4 weeks. (2) DVT (deep venous thrombosis) Qualifiers: DVT location: lower extremity Affected thrombotic vein of extremity: popliteal Chronicity: acute Laterality: right Qualified Code(s): I82.431 - Acute embolism and thrombosis of right popliteal vein
[2018-02-22] MEDS: Enoxaparin Inj 100 MG/ML Syringe SQ SCH (19:05)
[2018-02-22] MEDS: Acetaminophen 325 MG Tablet PO PRN (21:16)
[2018-02-23] MEDS: Enoxaparin Inj 100 MG/ML Syringe SQ SCH (06:17)
[2018-02-23 07:50] LABS: INR 1.2 Ratio
[2018-02-23 08:10] LABS: Glomerular Filtration Rate Greater Than 89 mL/min (>89)
[2018-02-23] MEDS: Sodium Chloride 0.9% 2 ML Flush BID IV.FLUSH SCH (09:16)
[2018-02-23] MEDS ORDERED: Pharmacy Ordered Lab Info OTHER ONE (10:45)
[2018-02-23 11:05] VITALS: RESP 18
--- NOTE | 2018-02-23 13:00 | P.DS ---
Date of admission: 02/20/18 06:17 Primary care physician: No Primary Care Physician Brief History from admission: 32-year-old white male being admitted for pulmonary emboli and DVT. Patient was in his usual state of health until Sunday when he began experiencing chest pain as well as right lower extremity pain. His mother noted that his chest pain would worsen when he would lie down flat. Chest pain slightly progressed since Sunday thus they decided come to the emergency department. Mother denies taking any additional medications try to treat his chest pain. Denies any nausea vomiting fevers or chills. Denies any shortness of breath. Mother denies the patient taking any long trips recently in the last 2 weeks. Patient does endorse that he smokes. Mother says that for long parts of the day he sits around the house, is relatively sedentary. He was recently released from incarceration earlier this October, his incarceration lasted 13 years for fleeting and losing. Sees a data modeling specialist and gets an Invega injections as well as Cogentin for schizoaffective disorder for the past few months. Mother endorses a family history of blood clots in herself and his brother. They denied being diagnosed with any blood clotting disorder. In the emergency department patient had an EKG done which upon my independent review shows no acute changes concerning for ischemia nor infarction, only sinus tachycardia. Chest x-ray is unremarkable. Patient had a CTA performed which was read as having moderate bilateral pulmonary emboli. My independent review of the CT scan does show bilateral infiltrates suggestive of pneumonia as well in the lung gonsalez. Venous Dopplers also shows an occlusive right lower extremity DVT in the posterior tibial veins. His BMP showed mild AK I. Patient was started on a heparin drip and given azithromycin and Rocephin. DS: Medications - Discharge Medications Prescriptions: levofloxacin 750 mg PO DAILY #7 tab levofloxacin 750 mg PO DAILY 6 Days #6 ml rivaroxaban [Xarelto] 15 mg PO BID 21 Days #42 tab rivaroxaban [Xarelto] 20 mg PO DAILY 30 Days #30 tab DS: Summary Hospital Course: 32-year-old male who was admitted 3 days ago with chest pain and shortness of breath. ER workup revealed bilateral pulmonary emboli and follow-up Doppler studies showed an occlusive right lower extremity and posterior tibial vein DVT. Mother states that there is a family history of blood clots as she has had one herself and his brother has had one. Patient has schizoaffective disorder and takes injections of Cogentin and in [place]. He has been relatively sedentary around the house. Patient was started on a heparin drip. Chest x- ray revealed consolidations which are likely due to the pulmonary embolism, but patient had fevers. Fevers are not uncommon with pulmonary emboli but since the picture is mixed he was started on Levaquin for empiric coverage of a possible lung infection. He will continue the Levaquin for 6 more days. He has been provided a coupon for 30 days free of Xarelto. Initial treatment is 15 mg twice daily for the first 21 days followed by a prescription for 20 mg daily with food for the next subsequent 4 months. Mother has stated she already spoke with a pharmacist use says that he can get her Xarelto for free under certain qualifications. Patient has been ambulating the halls and is not short of breath he is not in pain, he would like to go home. - Time Spent with Patient Total time spent providing and/or coordinating discharge services: Less than 30 minutes - Quality: VTE Deep Vein Thrombosis/Pulmonary Embolism Present on Admission: Yes Exam Vital signs: Vital Signs 02/22/18 13:00 02/22/18 14:00 02/22/18 14:33 Temperature Pulse Rate 94 H 92 H 96 H Respiratory Rate Blood Pressure Pulse Oximetry 02/22/18 16:00 02/22/18 16:54 02/22/18 17:05 Temperature 101.1 F H Pulse Rate 93 H 78 82 Respiratory Rate 18 Blood Pressure 159/89 H Pulse Oximetry 96 02/22/18 17:35 02/22/18 17:41 02/22/18 19:00 Temperature 98.0 F Pulse Rate 79 Respiratory Rate Blood Pressure Pulse Oximetry 96 02/22/18 20:00 02/22/18 21:00 02/22/18 22:00 Temperature 100.8 F H Pulse Rate 78 80 84 Respiratory Rate 16 Blood Pressure 157/86 H Pulse Oximetry 95 02/22/18 23:00 02/22/18 23:45 02/23/18 00:00 Temperature 98.6 F Pulse Rate 80 88 80 Respiratory Rate 16 Blood Pressure 148/83 H Pulse Oximetry 95 02/23/18 01:00 02/23/18 02:00 02/23/18 03:00 Temperature Pulse Rate 84 64 88 Respiratory Rate Blood Pressure Pulse Oximetry 02/23/18 04:00 02/23/18 05:00 02/23/18 06:00 Temperature 99.5 F Pulse Rate 94 H 80 90 Respiratory Rate 16 Blood Pressure 151/90 H Pulse Oximetry 94 L 02/23/18 07:00 02/23/18 08:00 Temperature 98.8 F Pulse Rate 120 H 109 H Respiratory Rate 18 Blood Pressure 152/89 H Pulse Oximetry 93 L Intake & Output 02/22/18 02/23/18 02/23/18 18:59 06:59 18:59 Intake Total 1885 / 1885 995 / 995 Output Total 1200 / 1200 700 / 700 Balance 685 / 685 295 / 295 Weight 104.5 kg 104 kg Intake: IV 665 / 665 515 / 515 Levaquin 750 mg Premix Inj 150 150 / 150 ML @ 100 mls/hr IV.SIG Q24H [facility] Rx#:[id number] Vancomycin Inj 1,500 MG In NS 515 / 515 515 / 515 Inj 500 ML @ 250 mls/hr IV.SIG Q12H [facility] Rx#:[id number] Oral 1220 / 1220 480 / 480 Output: Urine 1200 / 1200 700 / 700 Other: Date of Last Bowel Movement 02/21/18 02/21/18 02/21/18 Results Procedures completed during hospitalization: none Labs on day of discharge: Labs from last 24 hours 02/23/18 02/23/18 02/23/18 12:15 06:55 06:55 PT 12.0 H INR 1.2 Creatinine 0.97 Estimated GFR Greater than 89 Vancomycin Trough Pending Preliminary micro results at discharge 02/20/18 05:20 Aerobic Blood Culture - Preliminary Blood - Peripheral No growth in 3 days Anaerobic Blood Culture - Preliminary No growth in 3 days 02/20/18 05:15 Aerobic Blood Culture - Preliminary Blood - Peripheral No growth in 3 days Anaerobic Blood Culture - Preliminary No growth in 3 days - Impressions ITS Impressions Chest X-Ray 02/20/18 03:54 CONCLUSION: 1. Mild bilateral lower lung zone pulmonary opacity may represent mild pulmonary edema, atelectasis, or mild consolidation. 2. Moderate cardiac silhouette enlargement. Chest CTA 02/20/18 03:58 CONCLUSION: 1. Multiple moderate-sized pulmonary emboli bilaterally. 2. Moderate severity bilateral lower lobe pulmonary consolidation/atelectasis. 3. Small pleural effusions. Venous Doppler Study 02/20/18 03:58 CONCLUSION: Occlusive DVT of the right lower extremity involving the popliteal and posterior tibial veins. Discharge Plan - Discharge Disposition Patient Disposition: 01 Discharge Home - Discharge Condition Condition: Stable - Discharge Order Discharge Orders: Discharge Order (Routine); Ordered 02/23/18 Ordered By: Santino Seaman - Physicians Team Primary Care Provider: Primary Care Physici,No Attending Provider: Santino Seaman Other Providers: Rupali Deshpande MD
[2018-02-23] MEDS ORDERED: Vancomycin Inj 2,000 MG in Sodium Chlor 0.9% Inj 500 ML IV.SIG SCH (16:00)
[2018-02-23 16:12] VITALS: BP 163/93; PULSE 107; TEMP 98.5; O2SAT 93
[2018-02-25] MEDS ORDERED: Pharmacy Ordered Lab Info OTHER ONE (03:45)
== END 2018-02-23 16:19 | disposition home or self-care (01) ==
LOC: NEPE 03:24 → NEDA 06:17 → HCIS 08:45
PROVIDERS: ADMIT Family Medicine; ATTEND Family Medicine